=== PATIENT | female | born 1990 | race Caucasian/White ===

== ENCOUNTER → 2020-02-19 | Outpatient (CLI) | payer BC ==
[2020-02-19 15:12] LABS: Basophils # (A) 0.1 k/uL (0-0.2); Basophils % (A) 1 %; Eosinophils # (A) 0.1 k/uL (0-0.7); Eosinophils % (A) 1 %; HCT 38.4 % (34.0-46.0); HGB 11.3 gm/dL (11.4-16.0); Hypochromasia Marked; Lymphocytes # (A) 2.2 k/uL (1.0-4.8); Lymphocytes % (A) 37 %; MCHC 29.3 g/dL (31.0-37.0); Mean Platelet Volume 9.9; Microcytosis Slight; Monocytes # (A) 0.3 k/uL (0-1.0); Monocytes % (A) 5 %; Neutrophils # (A) 3.2 k/uL (1.3-7.7); Neutrophils % (A) 54 %; Platelet Count 209 k/uL (150-450); RBC 5.13 m/uL (3.80-5.40); RDW 15.7 % (11.5-15.5)
[2020-02-19 15:20] LABS: African American GFR (CKD) >90 (>60 ml/min/1.73 sqM); Anion Gap 5 mmol/L; Blood Urea Nitrogen 11 mg/dL (7-17); Carbon Dioxide 27 mmol/L (22-30); Chloride 106 mmol/L (98-107); Glucose 113 mg/dL (74-99); Non-African American GFR(CKD) >90 (>60 ml/min/1.73 sqM); Potassium 5.3 mmol/L (3.5-5.1); Sodium 138 mmol/L (137-145)
== END | disposition home or self-care (01) ==
LOC: LABPAT 13:48
PROVIDERS: ATTEND Obstetrics & Gynecology Obstetrics
DX: Z01.818 Encounter for other preprocedural examination (principal); N83.299 Other ovarian cyst, unspecified side
CPT/HCPCS: 36415; 80051; 82565; 82947; 84520; 85025; 87086

== ENCOUNTER 2020-02-25 08:24 | Day surgery (SDC) | payer BC ==
[2020-02-19 11:04] VITALS: BMI 28.3
[~2020-02-25 08:24] MED LIST: DEXAMETHASONE SOD PHOSPHATE 4 MG/ML 1 ML VIAL IV ONE; HYDROmorphone 0.5 MG/0.5 ML SYRINGE IVP PRN; LACTATED RINGERS 1,000 ML IV SCH; LIDOCAINE 1% (10MG/ML) FOR IV START INTRADERMA PRN; MIDAZOLAM 2 MG/2 ML VIAL IV PRN; ONDANSETRON 4 MG/2 ML VIAL IVP ONE; Pre Op ABX Message 1 EACH MISC MISCELLANE ONE
--- NOTE | 2020-02-25 09:25 | P.HPOB ---
History of Present Illness H&P Date: 02/25/20 Chief Complaint: Large right ovarian cyst This is a 29-year-old 0 that presented to the office for routine [facility] care with prior history of right ovarian cyst. Ultrasound was completed revealing a enlarged cystic right ovary, repeat ultrasound in a couple months revealing a stable large cystic right ovarian cyst 8.5 x 3.9 x 9.8. Patient does have known polycystic ovarian syndrome and her menstrual cycles are regular with Nortrel . She denies pelvic pain. Review of Systems Constitutional: Denies chills, Denies fatigue, Denies fever Ears, nose, mouth and throat: Denies headache Cardiovascular: Denies leg edema Respiratory: Denies dyspnea Gastrointestinal: Denies nausea, Denies vomiting Genitourinary: Denies pelvic pain, Denies Past Medical History Past Medical History: Skin Disorder Additional Past Medical History / Comment(s): tachycardia, eczema on hands, History of Any Multi-Drug Resistant Organisms: None Reported Past Surgical History: No Surgical Hx Reported Past Anesthesia/Blood Transfusion Reactions: Motion Sickness Smoking Status: Never smoker - Past Family History Mother Family Medical History: No Reported History Medications and Allergies Home Medications Medication Instructions Recorded Confirmed Type Pirmella Control 1 tab PO 1900 02/19/20 02/19/20 History Allergies Allergy/AdvReac Type Severity Reaction Status Date / Time No Known Allergies Allergy Verified 02/19/20 10:54 Exam Osteopathic Statement: *. No significant issues noted on an osteopathic structural exam other than those noted in the History and Physical/Consult. Vital Signs Temp Pulse Resp BP Pulse Ox 02/25/20 08:46 97.8 F 113 H 18 122/86 98 Intake and Output 02/24/20 02/25/20 02/25/20 22:59 06:59 14:59 Other: Weight 68.5 kg Targeted physical exam is performed and state in general this a well-nourished well-developed non female in no acute distress, breathing is noted to be nonlabored, heart has a regular rate and rhythm, abdomen is soft and nontender, pelvic exam in the office revealing a fullness in the right adnexa, posterior cu l-de-sac., no lower extremity swelling is appreciated Assessment and Plan (1) Ovarian cyst Current Visit: Yes Status: Acute Code(s): N83.209 - UNSPECIFIED OVARIAN CYST, UNSPECIFIED SIDE SNOMED Code(s): 13001168 Plan: This 29-year-old non patient with known large cystic right ovary 8.5 x 3.9 x 9.8 cm presents for operative laparoscopy with right salpingo-for ectomy, given the size of the cyst it was discussed with patient ovarian conservation is most likely not an option. Patient states understanding and has had this cyst for quite some time she states. Surgery is reviewed with patient in detail and all questions are answered. Risks are reviewed including not limited to infection, bleeding, damage to bladder, bowel, ureteric injury. Patient states understanding of these risks and wishes to proceed.
[2020-02-25] MEDS ORDERED: ROCURONIUM 10 MG/ML (10 ML VIAL) IV ONE (11:12)
[2020-02-25] MEDS ORDERED: fentaNYL (PF) 50 MCG/ML 2 ML AMP ONE (11:12)
[2020-02-25] MEDS ORDERED: LIDOCAINE 1% INJ 10MG/ML (20 ML MDV) ONE (11:12)
[2020-02-25] MEDS ORDERED: SUCCINYLCHOLINE CHLORIDE 100 MG/5 ML SYR IV ONE (11:12)
[2020-02-25] MEDS ORDERED: PROPOFOL 10 MG/ML 20 ML VIAL IV ONE (11:12)
[2020-02-25] MEDS ORDERED: MIDAZOLAM 2 MG/2 ML VIAL ONE (11:12)
[2020-02-25] MEDS ORDERED: GLYCOPYRROLATE 0.2 MG/ML 2 ML VIAL ONE (11:12)
[2020-02-25] MEDS ORDERED: NEOSTIGMINE 1 MG/ML 10 ML VIAL ONE (11:12)
[2020-02-25] MEDS ORDERED: BUPIVACAINE (PF) 0.25% 30 ML VIAL SQ ONE ×2 (11:51→12:29)
[2020-02-25] MEDS ORDERED: SODIUM CHLORIDE 0.9% 100 ML with ceFAZolin 2,000 MG IV ONE ×2 (12:05)
[2020-02-25] MEDS ORDERED: LACTATED RINGERS 1,000 ML IV ONE (12:11)
--- NOTE | 2020-02-25 12:49 | P.OP ---
Date of Procedure: 02/25/20 Preoperative Diagnosis: Large right ovarian cyst Postoperative Diagnosis: Same Procedure(s) Performed: Operative laparoscopy with right salpingo-oophorectomy Anesthesia: SHIRLEY Surgeon: Jessie Quiñones Senior Software Manager #1: Lyssa Whaley Estimated Blood Loss (ml): 15 IV fluids (ml): 900 Urine output (ml): 100 Pathology: other (Right fallopian tube and ovary) Condition: stable Disposition: PACU Indications for Procedure: This 29-year-old 0 has been being watched with large right ovarian cyst. Patient has a history of the cyst prior to coming to see me here at [facility]. After no change in size was noted recommendation for operative laparoscopy was made. Benign appearance on ultrasound in the office Operative Findings: Enlarged multiloculated right ovarian cyst simple pockets appreciated, no solid components Description of Procedure: Patient was seen in the preoperative area and informed consent was obtained. Patient was taken back to the operating suite where general anesthesia was obtained without difficulty by the anesthesia department. Patient was then prepped and draped in the normal sterile fashion in the dorsal lithotomy position. A weighted speculum posterior vaginal vault intralipids the cervix was visualized and grasped with a single-tooth tenaculum. A acorn uterine manipulator was at the end of the cervix as a means to manipulate the uterus during the procedure. Attention was then turned the patient's abdomen where in the umbilical fold a small skin incision is made. Through this incision appears needles placed. Once the Veress needle was deemed to be in the appropriate position with a drop of CO2 pressure with insufflation of CO2 gas CO2 insufflation was allowed to occur. Approximately 3 L of gas were used to obtain pneumoperitoneum. At this time a 5 mm trocar and sleeve with the laparoscope in place, is placed through the skin incision and toward the pneumoperitoneum under direct visualization. The above-noted findings are visualized. An additional port site 8 is placed at 10 cm lateral and 3 cm inferior midline port this is a 10 mm port. On inspection the pelvis the above-noted findings are visualized. At this time and additional port sites was placed on the left mid abdomen is a 5 mm ports and placed under direct visualization. The LigaSure is opened, the infundibulopelvic ligament is visualized coagulated and transected. Hemostasis was appreciated. This continued around the ovary and the broad toward the uterine ovarian ligament. The uterine ovarian ligament was visualized regular distally proximal plane divided. The cyst was then freed from the uterine detachment. An Endo Catch bag was placed into the abdomen the cyst was placed within the bag. The Endo Catch bag was then removed through the 10 mm port site which was extended to allow delivery of the cyst. The area camera was then placed once again in the abdomen and 2 cystic pieces were noted these were edbra cm and an additional bag and removed from the abdomen. An additional inspection the patient's abdomen the upper abdomen was grossly normal, the pedicle site was hemostatic. Surgicel was placed over the pedicle. The left ovary was noted to be normal in nature. At this time all instrument removed from the patient's abdomen the skin incisions were closed with 4-0 Vicryl with the exception of the right mid abdomen incision where the fascia was closed with 0 Vicryl on a UR 6 needle in a running fashion. Hemostasis was appreciated and the skin was closed in subcuticular fashion with 4-0 Vicryl. Attention then turned the patient's vaginal vault where the acorn uterine manipulator was removed without difficulty the single-tooth tenaculum was taken off of the anterior lip the cervix and hemostasis was appreciated. All counts were noted to be correct 2 Patient tolerated procedure well and was taken the recovery room awake in stable condition..
[2020-02-25 12:55] VITALS: RESP 16; TEMP 97.1
[2020-02-25] MEDS ORDERED: KETOROLAC 15 MG/ML 1 ML VIAL IVP ONE (13:08)
[2020-02-25] MEDS ORDERED: HYDROmorphone 0.5 MG/0.5 ML SYRINGE IVP ONE ×2 (13:10→13:11)
[2020-02-25 15:09] VITALS: BP 99/66; PULSE 68
== END 2020-02-25 15:05 | disposition home or self-care (01) ==
LOC: OR 08:24
PROVIDERS: ATTEND Obstetrics & Gynecology Obstetrics
DX: D27.0 Benign neoplasm of right ovary (principal); E28.2 Polycystic ovarian syndrome; L30.9 Dermatitis, unspecified; R00.0 Tachycardia, unspecified; Z79.3 Long term (current) use of hormonal contraceptives; Z87.898 Personal history of other specified conditions
CPT/HCPCS: 81025; 84132; 88307; 58661; J2250; J1100; J2710; J2405; J0690; J2001; J3010; J1885; J0330; J2704; J1170; 86850; 86900; 86901

== ENCOUNTER 2021-01-21 16:07 | Emergency (ER) | payer BC, MEDICAID ==
[2021-01-21 17:52] VITALS: TEMP 98.1
[2021-01-21] MEDS ORDERED: SODIUM CHLORIDE 0.9% 1,000 ML IV STA (19:24)
[2021-01-21] MEDS ORDERED: METOCLOPRAMIDE 5 MG/ML 2 ML VIAL IVP STA (19:24)
--- NOTE | 2021-01-21 19:34 | ED ---
General Adult HPI - General Chief complaint: Headache Stated complaint: Headache Time Seen by Provider: 01/21/21 18:54 Source: patient, RN notes reviewed Mode of arrival: ambulatory Limitations: no limitations - History of Present Illness Initial comments: Patient is a pleasant 30-year-old female presenting to the emergency Department with complaints of headache. Onset of symptoms was around 3:00. Headache started somewhat quickly. Headache was moderate to severe. Headache is now mild. Patient states that has been waxing and waning. Patient has had a diffuse similar headaches over the past several months. Patient did have nausea and vomiting however nausea is only mild at this time. No weakness or confusion. No fevers. Patient is concerned that her blood pressure at home was 160/80. - Related Data Home Medications Medication Instructions Recorded Confirmed Pirmella Control 1 tab PO 1900 02/19/20 02/19/20 Previous Rx's Medication Instructions Recorded Metoclopramide HCl [Reglan] 10 mg PO Q6HR PRN #15 tablet 01/21/21 Allergies Allergy/AdvReac Type Severity Reaction Status Date / Time No Known Allergies Allergy Verified 01/21/21 17:48 Review of Systems ROS Statement: Those systems with pertinent positive or pertinent negative responses have been documented in the HPI. ROS Other: All systems not noted in ROS Statement are negative. Constitutional: Denies: fever Eyes: Denies: eye pain ENT: Denies: ear pain Respiratory: Denies: cough Cardiovascular: Denies: chest pain Endocrine: Denies: fatigue Gastrointestinal: Reports: nausea, vomiting. Denies: abdominal pain Genitourinary: Denies: dysuria Musculoskeletal: Denies: back pain Skin: Denies: rash Neurological: Denies: weakness Past Medical History Past Medical History: No Reported History History of Any Multi-Drug Resistant Organisms: None Reported Past Surgical History: No Surgical Hx Reported Past Psychological History: Anxiety, Depression Smoking Status: Never smoker Past Alcohol Use History: None Reported Past Drug Use History: None Reported General Exam Limitations: no limitations General appearance: alert, in no apparent distress Head exam: Present: normocephalic Eye exam: Present: normal appearance, PERRL, EOMI. Absent: nystagmus ENT exam: Present: normal oropharynx Neck exam: Present: normal inspection Respiratory exam: Present: normal lung sounds bilaterally Cardiovascular Exam: Present: regular rate, normal rhythm GI/Abdominal exam: Present: soft. Absent: tenderness Extremities exam: Present: normal inspection Neurological exam: Present: alert, oriented X3, CN II-XII intact. Absent: motor sensory deficit Expanded Neurological exam: Present: protecting the airway Speech: Present: fluid speech Cranial nerves: EOM's Intact: Normal, Facial Sensation: Normal Cerebellar function: Finger to Nose: Normal Sensory exam: Upper Extremity Light Touch: Normal, Lower Extremity Light Touch: Normal Motor strength exam: RUE: 5, LUE: 5, RLE: 5, LLE: 5 Eye Response: (4) open spontaneously Motor Response: (6) obeys commands Verbal Response: (5) oriented Psychiatric exam: Present: normal affect, normal mood Skin exam: Present: normal color Course Vital Signs 01/21/21 01/21/21 17:48 20:10 Temperature 98.1 F Pulse Rate 87 70 Respiratory 20 18 Rate Blood Pressure 134/78 116/70 O2 Sat by Pulse 100 99 Oximetry EKG Findings - EKG Comments: EKG Findings:: Normal sinus rhythm with a rate of 69. SD 136. QRS 72. QT 420. QTc 450. Normal axis. Normal QRS. No acute ST change. Medical Decision Making - Medical Decision Making Patient reevaluated and resting comfortably in bed. Patient updated on results and need for follow-up. Patient states he feels much better after medication. - Lab Data Result diagrams: 01/21/21 20:08 01/21/21 20:08 Lab Results 01/21/21 01/21/21 01/21/21 Range/Units 20:08 20:08 20:08 WBC 10.6 (3.8-10.6) k/uL RBC 5.01 (3.80-5.40) m/uL Hgb 13.7 (11.4-16.0) gm/dL Hct 42.2 (34.0-46.0) % MCV 84.3 (80.0-100.0) fL MCH 27.3 (25.0-35.0) pg MCHC 32.3 (31.0-37.0) g/dL RDW 14.4 (11.5-15.5) % Plt Count 194 (150-450) k/uL MPV 9.5 Neutrophils % 86 % Lymphocytes % 11 % Monocytes % 2 % Eosinophils % 0 % Basophils % 1 % Neutrophils # 9.1 H (1.3-7.7) k/uL Lymphocytes # 1.2 (1.0-4.8) k/uL Monocytes # 0.2 (0-1.0) k/uL Eosinophils # 0.0 (0-0.7) k/uL Basophils # 0.1 (0-0.2) k/uL PT 10.1 (9.0-12.0) sec INR 0.9 (<1.2) APTT 23.1 (22.0-30.0) sec Sodium 139 (137-145) mmol/L Potassium 4.3 (3.5-5.1) mmol/L Chloride 105 (98-107) mmol/L Carbon Dioxide 24 (22-30) mmol/L Anion Gap 10 mmol/L BUN 17 (7-17) mg/dL Creatinine 0.72 (0.52-1.04) mg/dL Est GFR (CKD-EPI)AfAm >90 (>60 ml/min/1.73 sqM) Est GFR (CKD-EPI)NonAf >90 (>60 ml/min/1.73 sqM) Glucose 114 H (74-99) mg/dL Calcium 9.2 (8.4-10.2) mg/dL Total Bilirubin 0.2 (0.2-1.3) mg/dL AST 22 (14-36) U/L ALT 14 (4-34) U/L Alkaline Phosphatase 71 (38-126) U/L Total Protein 8.2 (6.3-8.2) g/dL Albumin 4.4 (3.5-5.0) g/dL - Radiology Data Radiology results: report reviewed (Computed tomography scan of the brain and angiogram shows no acute intercranial hemorrhage. No occlusion or stenosis. Tortuous right vertebral artery.) Disposition Clinical Impression: Cephalgia Disposition: HOME SELF-CARE Condition: Stable Instructions (If sedation given, give patient instructions): Acute Headache (ED) Additional Instructions: Please do follow-up with primary care physician in the next day or 2 for recheck. Consider neurology evaluation. Return for increased pain, weakness or confusion, headaches, persistent vomiting, worsening symptoms or other concerns. Prescription for Reglan has been sent to pharmacy Prescriptions: Metoclopramide HCl [Reglan] 10 mg PO Q6HR PRN #15 tablet PRN Reason: Nausea Is patient prescribed a controlled substance at d/c from ED?: No Referrals: Dennys Encarnacion MD [STAFF PHYSICIAN] - 1-2 days Time of Disposition: 20:51
[2021-01-21 20:11] VITALS: BP 116/70; PULSE 70; RESP 18
[2021-01-21 20:16] LABS: Basophils # (A) 0.1 k/uL (0-0.2); Basophils % (A) 1 %; Eosinophils % (A) 0 %; HCT 42.2 % (34.0-46.0); HGB 13.7 gm/dL (11.4-16.0); Lymphocytes # (A) 1.2 k/uL (1.0-4.8); Lymphocytes % (A) 11 %; MCH 27.3 pg (25.0-35.0); MCHC 32.3 g/dL (31.0-37.0); MCV 84.3 fL (80.0-100.0); Mean Platelet Volume 9.5; Monocytes # (A) 0.2 k/uL (0-1.0); Monocytes % (A) 2 %; Neutrophils # (A) 9.1 k/uL (1.3-7.7); Neutrophils % (A) 86 %; Platelet Count 194 k/uL (150-450); RBC 5.01 m/uL (3.80-5.40); RDW 14.4 % (11.5-15.5); WBC 10.6 k/uL (3.8-10.6)
[2021-01-21 20:24] LABS: INR 0.9 (<1.2); Partial Thromboplastin Time 23.1 sec (22.0-30.0); Prothrombin Time 10.1 sec (9.0-12.0)
[2021-01-21 20:27] LABS: ALT 14 U/L (4-34); AST 22 U/L (14-36); African American GFR (CKD) >90 (>60 ml/min/1.73 sqM); Albumin 4.4 g/dL (3.5-5.0); Alkaline Phosphatase 71 U/L (38-126); Anion Gap 10 mmol/L; Blood Urea Nitrogen 17 mg/dL (7-17); Calcium 9.2 mg/dL (8.4-10.2); Carbon Dioxide 24 mmol/L (22-30); Chloride 105 mmol/L (98-107); Glucose 114 mg/dL (74-99); Non-African American GFR(CKD) >90 (>60 ml/min/1.73 sqM); Potassium 4.3 mmol/L (3.5-5.1); Sodium 139 mmol/L (137-145); Total Bilirubin 0.2 mg/dL (0.2-1.3); Total Protein 8.2 g/dL (6.3-8.2)
--- NOTE | 2021-01-21 20:43 | CT ---
EXAMINATION TYPE: CT brain wo con, CT angio COW [place] DATE OF EXAM: 01/21/2021 COMPARISON: None HISTORY: c/o headache, high BP, vomiting (accession [id number]), c/o headache, high BP, vomiting. (Acce ssion [id number]) TECHNIQUE: CT scan of the head performed without contrast. CT angiogram performed during injection of 100 mL of Isovue 370. 3-D reconstruction images of [place] obtained. CT DLP: 1101.8 (accession [id number]), 168.9 (accession [id number]) mGycm Automated exposure control for dose reduction was used. FINDINGS: CT head: No acute intracranial hemorrhage, midline shift or mass effect. Gordon-white matter differentiation is preserved. CSF spaces and ventricles are normal in configuration. No acute orbital, osseous or soft tissue abnormalities seen. Mastoid air cells and paranasal sinuses are aerated. There is mild mucosal thickening in the right ma xillary sinus. CT angiogram of [place]: Anterior cerebral arteries, middle cerebral arteries and posterior cerebral arteries are patent. Left vertebral artery is dominant. Right vertebral artery is tortuous within foramen of magnum. Basil ar artery is patent. The deep venous structures are patent. IMPRESSION: 1. NO ACUTE INTRACRANIAL ABNORMALITY. 2. NO VASCULAR OCCLUSION OR HEMODYNAMICALLY SIGNIFICANT STENOSIS. 3. TORTUOUS RIGHT VERTEBRAL ARTERY.
== END 2021-01-21 21:02 | disposition home or self-care (01) ==
LOC: EC 16:07
DX: R51.9 Headache, unspecified (principal); R11.2 Nausea with vomiting, unspecified
CPT/HCPCS: 36415; 93005; 80053; 85025; 85610; 85730; 70496; 70450; 99284; 96374; 96361; J2765; Q9967

== ENCOUNTER → 2024-02-08 | Outpatient (CLI) | payer OTHER ==
[2024-02-09 03:03] LABS: Protein, Total 7.5 g/dL (6.2-8.2)
== END | disposition home or self-care (01) ==
LOC: LABWHC1 15:54
PROVIDERS: ATTEND Family Medicine
DX: R77.1 Abnormality of globulin (principal)
CPT/HCPCS: 36415; 84156; 84165; 86334